=== PATIENT | male | born 1965 | race American Indian/Alaskan Native ===

== ENCOUNTER 2017-11-27 05:52 | Emergency (ER) | payer OTHER ==
[2017-11-27 06:39] LABS: Basophils # (Auto) 0.1 K/mm3 (0.0-0.1); Basophils % (Auto) 1.1 % (0.0-1.8); Eosinophils # (Auto) 0.1 K/mm3 (0.0-0.4); Eosinophils % (Auto) 1.8 % (0.0-4.3); Hematocrit 43.3 % (35.5-45.6); Hemoglobin 14.6 gm/dl (11.8-15.2); Lymphocytes # (Auto) 0.9 K/mm3 (1.2-5.4); Lymphocytes % (Auto) 12.8 % (13.4-35.0); Mean Corpuscular HGB Conc 34 % (32-34); Mean Corpuscular Hemoglobin 27 pg (28-32); Mean Corpuscular Volume 81 fl (84-94); Monocytes # (Auto) 0.7 K/mm3 (0.0-0.8); Monocytes % (Auto) 9.7 % (0.0-7.3); Platelet Count 141 K/mm3 (140-440); Red Blood Count 5.35 M/mm3 (3.65-5.03); Red Cell Distribution Width 13.8 % (13.2-15.2)
[2017-11-27 08:14] LABS: Bilirubin,Urine NEG (Negative); Blood,Urine NEG (Negative); Color,Urine Straw (Yellow); Protein,Urine <15 mg/dL mg/dL (Negative); Urobilinogen,Urine < 2.0 mg/dL (<2.0); WBC,Urine < 1.0 /HPF (0.0-6.0)
[2017-11-27 08:24] LABS: Alanine Aminotransferase 14 units/L (7-56); Albumin 4.2 g/dL (3.9-5); BUN/Creatinine Ratio 16; Blood Urea Nitrogen 19 mg/dL (9-20); Calcium 8.6 mg/dL (8.4-10.2); Hemolysis Index 5
--- NOTE | 2017-11-27 09:38 | Emergency Department Report ---
ED General Adult HPI - General Chief complaint: Back Pain/Injury Stated complaint: LOWER BACKACHE, HURTS WHEN I BREATHE Time Seen by Provider: 11/27/17 09:37 Source: patient Mode of arrival: Ambulatory Limitations: No Limitations - History of Present Illness Initial comments: Patient reports the gradual onset of right flank lower posterior chest pain on Saturday. He states that he wasn't doing any lifting or any unusual activity. He denies any recent travel. He denies leg pain or swelling. He states the pain augments on his respirations but he is not frankly short of breath. He has not been coughing. He doesn't relate any symptoms. He states he is not had anything like this before. He is on no current medicines. He reports no similar emergency department visit and no chronic medical issue. He states that he does not have a family history of the VTE. -: Gradual, days(s) Location: back Radiation: non-radiation Quality: aching Consistency: intermittent Improves with: none Worsens with: movement, other (states breathing or talking) Associated Symptoms: denies other symptoms Treatments Prior to Arrival: none - Related Data Previous Rx's Medication Instructions Recorded Last Taken Type traMADol [Ultram] 50 mg PO Q6HR PRN #14 tablet 11/27/17 Unknown Rx Allergies Allergy/AdvReac Type Severity Reaction Status Date / Time No Known Allergies Allergy Unverified 11/27/17 06:04 ED Review of Systems ROS: Stated complaint: LOWER BACKACHE, HURTS WHEN I BREATHE Other details as noted in HPI Constitutional: denies: chills, fever Eyes: denies: eye pain, eye discharge, vision change ENT: denies: ear pain, throat pain Respiratory: denies: cough, shortness of breath, wheezing Cardiovascular: chest pain (posterior right/flank). denies: palpitations Endocrine: no symptoms reported Gastrointestinal: other. denies: abdominal pain, nausea, diarrhea Genitourinary: denies: urgency, dysuria Musculoskeletal: denies: back pain, joint swelling, arthralgia Skin: denies: rash, lesions Neurological: denies: headache, weakness, paresthesias Psychiatric: denies: anxiety, depression Hematological/Lymphatic: denies: easy bleeding, easy bruising ED Past Medical Hx - Past Medical History Previous Medical History?: No - Surgical History Past Surgical History?: No - Social History Smoking Status: Never Smoker Substance Use Type: Alcohol - Medications Home Medications: Home Medications Medication Instructions Recorded Confirmed Last Taken Type traMADol [Ultram] 50 mg PO Q6HR PRN #14 tablet 11/27/17 Unknown Rx ED Physical Exam - General Limitations: No Limitations General appearance: alert, in no apparent distress - Head Head exam: Present: atraumatic, normocephalic - Eye Eye exam: Present: normal appearance, PERRL, EOMI - ENT ENT exam: Present: mucous membranes moist - Neck Neck exam: Present: normal inspection. Absent: tenderness, meningismus - Respiratory Respiratory exam: Present: normal lung sounds bilaterally. Absent: respiratory distress - Cardiovascular Cardiovascular Exam: Present: regular rate, normal rhythm. Absent: systolic murmur, diastolic murmur, rubs, gallop - GI/Abdominal GI/Abdominal exam: Present: soft, normal bowel sounds. Absent: distended, tenderness, guarding, rebound, rigid - Rectal Rectal exam: Present: deferred - Extremities Exam Extremities exam: Present: normal inspection - Back Exam Back exam: Present: normal inspection. Absent: CVA tenderness (R), CVA tenderness (L), muscle spasm, paraspinal tenderness, vertebral tenderness - Neurological Exam Neurological exam: Present: alert, oriented X3, CN II-XII intact. Absent: motor sensory deficit - Psychiatric Psychiatric exam: Present: normal affect, normal mood - Skin Skin exam: Present: warm, dry, intact, normal color. Absent: rash ED Course Vital Signs 11/27/17 11/27/17 11/27/17 05:57 09:49 10:44 Temperature 98.4 F Pulse Rate 69 Respiratory 18 18 18 Rate Blood Pressure 124/68 O2 Sat by Pulse 100 100 Oximetry - Reevaluation(s) Reevaluation #1: On reexamination the patient was entirely comfortable. He is appropriate for outpatient management. 11/27/17 13:37 ED Medical Decision Making - Lab Data Result diagrams: 11/27/17 06:23 11/27/17 07:25 Laboratory Results - last 24 hr 11/27/17 11/27/17 11/27/17 06:23 07:25 Unknown WBC 7.0 RBC 5.35 H Hgb 14.6 Hct 43.3 MCV 81 L MCH 27 L MCHC 34 RDW 13.8 Plt Count 141 Lymph % (Auto) 12.8 L [place] % (Auto) 9.7 H Eos % (Auto) 1.8 Baso % (Auto) 1.1 Lymph # 0.9 L [place] # 0.7 Eos # 0.1 Baso # 0.1 Seg Neutrophils % 74.6 H Seg Neutrophils # 5.2 Sodium 140 Potassium 4.6 Chloride 102.9 Carbon Dioxide 28 Anion Gap 14 BUN 19 Creatinine 1.2 Estimated GFR > 60 BUN/Creatinine Ratio 16 Glucose 102 H Calcium 8.6 Total Bilirubin 0.30 AST 16 ALT 14 Alkaline Phosphatase 63 Total Protein 7.0 Albumin 4.2 Albumin/Globulin Ratio 1.5 Urine Color Straw Urine Turbidity Clear Urine pH 5.0 Ur Specific [place] 1.011 Urine Protein <15 mg/dl Urine Glucose (UA) Neg Urine Ketones Neg Urine Blood Neg Urine Nitrite Neg Urine Bilirubin Neg Urine Urobilinogen < 2.0 Ur Leukocyte Esterase Neg Urine WBC (Auto) < 1.0 Urine RBC (Auto) 1.0 - Radiology Data Radiology results: report reviewed interpreted by me: CT of the chest shows bilateral subsegmental atelectasis no pulmonary embolism no acute process. CT abdomen is without significant abnormality. Critical care attestation.: If time is entered above; I have spent that time in minutes in the direct care of this critically ill patient, excluding procedure time. ED Disposition Clinical Impression: Musculoskeletal pain, Right flank pain Disposition: TO HOME OR SELFCARE Is pt being admited?: No Does the pt Need Aspirin: No Condition: Stable Instructions: Flank Pain (ED), Muscle Strain (ED) Additional Instructions: Return any acute change or worsening symptoms. Follow up with a primary care provider. R axis needed for pain. Prescriptions: traMADol [Ultram] 50 mg PO Q6HR PRN #14 tablet PRN Reason: Pain Referrals: PRIMARY MD ELSA [Primary Care Provider] - 3-5 Days [facility] [Provider Group] - 2-3 Days Time of Disposition: 13:38
[2017-11-27] MEDS ORDERED: NORCO 5/325 PO ONE (09:47)
[2017-11-27] MEDS ORDERED: NACL ONE (11:45)
--- NOTE | 2017-11-27 12:42 | Cat Scan Report ---
FINAL REPORT EXAM: CT ABDOMEN PELVIS WO CON HISTORY: R flank pain TECHNIQUE: CT of the abdomen and pelvis without IV contrast. Coronal and sagittal reconstructed imaging provided. PRIORS: None currently available. FINDINGS: ABDOMEN: Stomach: Unremarkable. Liver: Unremarkable. Gallbladder: Unremarkable. Spleen: Unremarkable. Pancreas: Unremarkable. Adrenals: Unremarkable. Kidneys: Unremarkable. No hydronephrosis. No nephroureteral stones. There is no abdominal aortic aneurysm. IVC is unremarkable. There is no periaortic or retroperitoneal adenopathy or mass. [id number] stool throughout the colon. More moderate stool in the right colon and rectum. No wall thickening or inflammatory changes. Terminal ilium is unremarkable. Appendix is normal. Small bowel loops are unremarkable. No obstructive pattern. No free air. No free fluid. Mesentery is unremarkable. Fat-containing umbilical hernia without strangulation. PELVIS: Bladder is unremarkable. Mildly prominent prostate. There is no pelvic mass or adenopathy. Inguinal regions are unremarkable. Bones: No suspicious osseous lesions on this limited examination of the skeleton. Metastatic disease better evaluated with bone scan. Degenerative changes are in the spine. IMPRESSION: Suspect constipation. Moderate stool in the right colon. Possible fecal impaction at the rectum. Mildly prominent prostate. Correlation with PSA may be helpful clinically indicated. Otherwise, no acute findings.
--- NOTE | 2017-11-27 12:53 | Cat Scan Report ---
FINAL REPORT EXAM: CT ANGIO CHEST HISTORY: pleuritic lower back pain R TECHNIQUE: CTA of chest with IV contrast. Coronal and sagittal and MIP reconstructed images provided. PRIORS: None currently available. FINDINGS: No pneumothorax. No effusion. No consolidation. No endobronchial lesion. Bibasilar dependent subsegmental atelectasis. Main pulmonary arteries are unremarkable. No pulmonary embolus. No aortic aneurysm. No dissection. Heart size unremarkable. No pericardial effusion. There is no axillary adenopathy. There is no hilar or mediastinal mass or adenopathy. Images of the esophagus are unremarkable. No suspicious osseous lesions on this limited examination of the skeleton. Metastatic disease better evaluated with bone scan. Degenerative changes are present in the spine. IMPRESSION: Bibasilar dependent subsegmental atelectasis. Otherwise, no acute cardiopulmonary findings.
[2017-11-27 13:46] VITALS: BP 126/71
== END 2017-11-27 13:45 | disposition home or self-care (01) ==
LOC: ED 05:52
DX: M79.1 Myalgia (principal)
CPT/HCPCS: 36415; 71275; 74176; 80053; 81001; 85025; 99284; Q9967